=== PATIENT | female | born 1980 | race Caucasian/White ===

== ENCOUNTER 2021-10-27 17:27 | Emergency (ER) | payer OTHER, SELFPAY ==
[2021-10-27 17:29] VITALS: BP 131/79; PULSE 68; RESP 20; TEMP 36.1; O2SAT 98; BMI 30.6
--- NOTE | 2021-10-27 17:43 | ED_ITS ---
HPI - Nausea/Vomiting/Diarrhea General Chief complaint: Nausea/Vomiting Stated complaint: Dry Heaving/Body Aches Time Seen by Provider: 10/27/21 17:30 History of Present Illness HPI Narrative: This 41-year-old female comes in reporting nausea, vomiting, diarrhea, and crampy upper epigastric pain. These symptoms began today. She states that she had some alcohol last night and does not normally take alcohol. She does not report any fevers. She does not have any blood in the toilet. Related Data Home Medications Medication Instructions Recorded Confirmed cyclobenzaprine 10 mg tablet mg 10/27/21 Allergies Allergy/AdvReac Type Severity Reaction Status Date / Time codeine Allergy Mild Verified 10/27/21 17:35 Review of Systems Status of ROS: Reports: 10 or more systems reviewed and unremarkable except as noted in History and below Narrative: Constitutional: No fevers, no weight gain or loss. Eyes: No discharge. No vision changes. HENT: No congestion, no sore throat, no ear pain. Cardiovascular: No chest pain, no palpitations. Respiratory: No shortness of breath, no wheezes, no cough. Gastrointestinal: Upper epigastric abdominal pain. Nausea, vomiting, and diarrhea. Genitourinary: No dysuria, no hematuria. Musculoskeletal: Normal range of motion. Skin: No rashes, no pruritis. Neurological: No dizziness, weakness, sensory change, speech change. Endo/Heme/Allergies: No bruising or bleeding. No polydipsia. Pysch: no suicidality, no anxiety, no insomnia. All other systems reviewed and are negative. [facility] Social History Smoking Status: Unknown if ever smoked Do you use any of these nicotine containing products: None Non-prescribed substance use: denies use Exam Narrative: Exam Narrative: Constitutional: Well-developed, well-nourished, no acute distress. HEENT: Normocephalic, atraumatic. Neck: Normal range of motion. Nontender. Supple. Heart: Regular. No murmurs. Normal rate. Intact distal pulses. Lungs: Clear to auscultation. No chest discomfort. No wheezes, rhonchi, or rales. Abdomen: Normal bowel sounds. Upper epigastric abdominal pain. No rebound tenderness. Genitalia: Deferred. Back: No midline tenderness. Normal range of motion. Extremities: Normal range of motion. No injury. Skin: Intact. No rash. Warm. No erythema or pallor. Neurologic: No altered sensation. No weakness. Alert and oriented. Psychiatric: No suicidality. No anxiety or depression. No insomnia. Nursing notes and vitals signs are reviewed. Const: Vital Signs, click to edit/add: Vital Signs - 24 hr 10/27/21 17:29 Temperature 97.0 F L Pulse Rate [Right Pulse Oximeter] 68 Respiratory Rate 20 Blood Pressure [Ri ght Upper Arm] 131/79 Pulse Oximetry 98 Oxygen Delivery Me thod Room Air Course Vital Signs Vital signs: Initial Vital Signs Temperature 97.0 F L 10/27/21 17:29 Temperature Source Temporal Artery Scan 10/27/21 17:29 Pulse Rate 68 10/27/21 17:29 Pulse Rhythm 10/27/21 17:29 Respiratory Rate 20 10/27/21 17:29 Blood Pressure 131/79 10/27/21 17:29 Blood Pressure Mean 96 10/27/21 17:29 Blood Pressure Position Sitting 10/27/21 17:29 Pulse Oximetry 98 10/27/21 17:29 Oxygen Delivery Method 10/27/21 17:29 Vital Signs Temperature 97.0 F L 10/27/21 17:29 Pulse Rate 68 10/27/21 17:29 Respiratory Rate 20 10/27/21 17:29 Blood Pressure 131/79 10/27/21 17:29 Pulse Oximetry 98 10/27/21 17:29 Oxygen Delivery Method 10/27/21 17:29 Temperature 97.0 F L 10/27/21 17:29 Pulse Rate 68 10/27/21 17:29 Respiratory Rate 20 10/27/21 17:29 Blood Pressure 131/79 10/27/21 17:29 Pulse Oximetry 98 10/27/21 17:29 Oxygen Delivery Method 10/27/21 17:29 MDM - Nausea/Vomiting/Diarrhea MDM Narrative Medical decision making narrative: This patient comes in with nausea and vomiting and diarrhea. An IV was established where she received a L of normal saline, Toradol 30 mg, Zofran 4 mg, and later Reglan 10 mg. She has not had any further vomiting but does still feel some nausea. Lab results returned with reassuring findings. Her white count is slightly elevated. Most likely this is a viral gastroenteritis or perhaps some kind of toxin. She states that she has Zofran at home that she can use as needed. A prescription for Toradol is provided. Lab Data Labs: Lab Results 10/27/21 10/27/21 10/27/21 Range/Units 17:45 17:45 17:45 WBC 12.58 H (4.50-11.00) K/uL RBC 5.50 H (4.00-5.20) m/uL Hgb 15.6 (12.0-16.0) gm/dL Hct 45.6 (33.0-51.0) % MCV 83 (80-100) fL MCH 28 (26-34) pg MCHC 34 (32-36) gm/dL RDW Coeff of Sangeeta 13.1 (11.5-15.5) % Plt Count 438 (140-440) K/uL Neut % (Auto) 88.7 H (42.0-72.0) % Lymph % (Auto) 9.5 L (20-44) % [place] % (Auto) 1.5 (0.0-11.0) % Eos % (Auto) 0.1 (0.0-7.0) % Baso % (Auto) 0.1 (0.0-3.0) % Neut # (Auto) 11.20 H (1.7-7.0) K/uL Lymph # (Auto) 1.20 (0.90-2.90) K/uL [place] # (Auto) 0.20 (0.00-0.90) K/UL Eos # (Auto) 0.00 (0.00-0.50) K/uL Baso # (Auto) 0.00 (0.00-0.30) K/uL Abs Immat Gran (auto) 0.01 (0.00-0.30) K/uL Sodium 137 (135-149) mmol/L Potassium 4.1 (3.6-5.1) mmol/L Chloride 106 (96-114) mmol/L Carbon Dioxide 24 (20-32) mmol/L BUN 9 (5-24) mg/dL Creatinine 0.7 (0.5-1.5) mg/dL Estimated Creat Clear 89.48 Estimated GFR 110 ml/min Glucose 128 H (60-115) mg/dL Calcium 9.1 (8.4-10.6) mg/dL Lipase 46 (23-300) U/L Discharge Plan Discharge Clinical Impression: Gastroenteritis Patient Disposition: Home, Self-Care Condition: Stable Instructions: Gastroenteritis (ED) Additional Instructions: Take medication as needed and indicated. Increase diet as tolerated. Follow up with MD or return if worsening. Prescriptions: No Action cyclobenzaprine 10 mg tablet Label Comments: TAKE 1 TABLET BY MOUTH DAILY NEEDED FOR PAIN Follow Up/Referrals: Provider,Not a Local [Primary Care Provider] - Stand Alone Forms: [employer]works Info Instructions
[2021-10-27 17:53] LABS: Basophils Percent Auto 0.1 % (0.0-3.0); Eosinophils Percent Auto 0.1 % (0.0-7.0); Hematocrit 45.6 % (33.0-51.0); Hemoglobin* 15.6 gm/dL (12.0-16.0); Immature Granulocytes Abs Auto 0.01 K/uL (0.00-0.30); Lymphocytes Percent Auto 9.5 % (20-44); Mean Corpuscular HGB Conc 34 gm/dL (32-36); Mean Corpuscular Hemoglobin 28 pg (26-34); Mean Corpuscular Volume 83 fL (80-100); Monocytes Percent Auto 1.5 % (0.0-11.0); Neutrophils Percent Auto 88.7 % (42.0-72.0); Platelet Count* 438 K/uL (140-440); RDW Coefficient of Variation % 13.1 % (11.5-15.5); White Blood Count* 12.58 K/uL (4.50-11.00)
[2021-10-27 17:54] LABS: Slide Review Reflex No
[2021-10-27] MEDS: KETOROLAC 30 MG/ML inj IVP (17:55)
[2021-10-27] MEDS: ONDANSETRON 2 MG/ML inj 4 MG IVP (17:55)
[2021-10-27] MEDS: 0.9 % SODIUM CHLORIDE 1000 ml 1,000 ML IV ×2 (17:56→19:05)
[2021-10-27 18:05] LABS: Chloride* 106 mmol/L (96-114); Sodium* 137 mmol/L (135-149)
[2021-10-27 18:06] LABS: Potassium* 4.1 mmol/L (3.6-5.1)
[2021-10-27 18:08] LABS: Creatinine* 0.7 mg/dL (0.5-1.5); Est. Creatinine Clearance* 89.48; Estimated Glomerular Filt Rate 110 ml/min; Lipase* 46 U/L (23-300)
[2021-10-27 18:09] LABS: Blood Urea Nitrogen* 9 mg/dL (5-24); Calcium* 9.1 mg/dL (8.4-10.6); Carbon Dioxide* 24 mmol/L (20-32); Glucose* 128 mg/dL (60-115)
[2021-10-27] MEDS: METOCLOPRAMIDE HCL 5 MG/ML INJ 10 MG IV (18:33)
[2021-10-27] MEDS: OLANZapine 5 MG/ML inj 2.5 MG IV (19:05)
[2021-10-27 20:02] VITALS: BP 131/79; PULSE 79; RESP 18; O2SAT 100
--- NOTE | 2021-10-27 20:03 | ED.NURSE ---
pain rating is nausea rating per patient
== END 2021-10-27 20:13 | disposition home or self-care (01) ==
PROVIDERS: Emergency Provider Emergency Medicine Emergency Medical Services
DX: K52.9 Noninfective gastroenteritis and colitis, unspecified (principal)
CPT/HCPCS: 36415; 80048; 83690; 85025; 96374; 96375; 99284; J1885; J2405; J2765; J7030; S0166